=== PATIENT | male | born 1950 | race Caucasian/White ===

== ENCOUNTER 2016-12-09 09:45 | Day surgery (SDC) | payer MEDICARE, MEDICAID ==
[2016-12-09] VITALS (7 sets, daily range): BP systolic 95–143; BP diastolic 54–80; PULSE 76–94; TEMP 97.8–98.5
[~2016-12-09] VITALS: Ht 165.1 cm; Wt 75.1 kg
[2016-12-09] MEDS ORDERED: TOPAMAX 100MG100 M1 PO (10:23)
[2016-12-09] MEDS ORDERED: MIRALAX PA17 GM/Dose PO (10:25)
[2016-12-09] MEDS ORDERED: IMDUR 30MG30 MG/TAB PO (10:26)
[2016-12-09] MEDS ORDERED: ZYRTEC 10MG10 MG PO (10:28)
[2016-12-09] MEDS ORDERED: LAMICTAL150 MG PO ×2 (10:29)
[2016-12-09] MEDS ORDERED: COLACE 100100 MG/CAP PO (10:30)
[2016-12-09] MEDS ORDERED: VITAMIN C500 MG PO (10:32)
[2016-12-09] MEDS ORDERED: VYTORIN 10 MG-21 TAB PO (10:32)
[2016-12-09] MEDS ORDERED: ASPIRIN 81M81 MG/TA2 PO (10:33)
[2016-12-09] MEDS ORDERED: VICKS VAPORUB 41 OIN TP (10:34)
[2016-12-09] MEDS ORDERED: TOPROL XL 25MG25 MG PO (10:35)
[2016-12-09] MEDS ORDERED: PROTONIX 40MG T40 MG PO (10:36)
[2016-12-09] MEDS ORDERED: CALCIUM 600MG+D1 TAB PO (10:37)
[2016-12-09] MEDS ORDERED: FERROUS SU325 MG/TAB PO (10:38)
[2016-12-10 00:05] VITALS: BP 135/69; PULSE 102; TEMP 98.2
[2016-12-10 04:53] VITALS: BP 140/67; PULSE 84; TEMP 98.5
[2016-12-10] MEDS ORDERED: NORCO 325 MG-7.1 TAB PO (07:13)
[2016-12-10 09:16] VITALS: BP 143/75; PULSE 98; TEMP 97.8
== END 2016-12-10 11:27 | disposition home or self-care (01) ==
LOC: SDCO 09:45 → SURG 14:34 → SDCO 12-10 11:27
DX: K44.9 Diaphragmatic hernia without obstruction or gangrene (principal); R07.9 Chest pain, unspecified; K80.10 Calculus of gallbladder with chronic cholecystitis without obstruction; G40.909 Epilepsy, unspecified, not intractable, without status epilepticus; I25.10 Atherosclerotic heart disease of native coronary artery without angina pectoris; Z95.5 Presence of coronary angioplasty implant and graft
CPT/HCPCS: OP; J0690; J1100; J1170; J1885; J2270; J2405; J2704; J2710; J3010; J7120